=== PATIENT | female | born 1950 | race Caucasian/White ===

== ENCOUNTER 2017-07-31 00:24 | Observation (INO) | payer MEDICARE, OTHER ==
[~2017-07-31] VITALS: Ht 157.5 cm; Wt 72.8 kg
[2017-07-31 01:46] LABS: INFLUENZA A NONE DETECTED (NONE DETECT); INFLUENZA B NONE DETECTED (NONE DETECT)
[2017-07-31 03:40] LABS: HEMATOCRIT 35.5 % (37.0-47.0); HEMOGLOBIN 11.5 g/dl (12.0-16.0); IMMATURE GRANULOCYTES 0.4 % (0.0-1.0); MEAN CELL VOLUME 89.6 fL CALC (80.0-100.0); MEAN CORPUSCULAR HGB CONC 32.4 g/L CALC (32.0-36.0); NEUT# 2.78 thou/uL (2.00-7.15); RED BLOOD COUNT 3.96 mill/uL (4.20-5.60); RED CELL DISTRI WIDTH 12.3 % (11.5-15.5)
[2017-07-31 03:52] LABS: ALBUMIN 3.8 g/dL (3.2-5.0); ALKALINE PHOSPHATASE 82 u/l (38-126); AMYLASE 66 u/l (30-110); ANION GAP 14 (6-22 (CALC)); BILIRUBIN, TOTAL 0.5 mg/dL (0.0-1.4); BUN 16 mg/dL (8-23); BUN/CREATININE RATIO 20 (12-20 (CALC)); CALCIUM 9.5 mg/dL (8.4-10.2); CARBON DIOXIDE 27 mmol/l (22-30); CHLORIDE 104 mmol/l (95-108); CREATININE 0.8 mg/dL (0.5-1.0); GFR > 60 ML/MIN (>=60 (CALC)); GFR FOR AFR.AMER. > 60 ML/MIN (>=60 (CALC)); GLUCOSE 108 mg/dL (82-115); LIPASE 176 u/l (23-300); SGOT/AST 57 u/l (9-36); SGPT/ALT 33 u/l (11-66); SODIUM 141 mmol/l (137-146)
[2017-07-31 04:05] LABS: MYOGLOBIN 37 ng/mL (0 - 62)
[2017-07-31 06:00] VITALS: BP 113/62
[2017-07-31 07:40] VITALS: BP 107/60
[2017-07-31 10:15] LABS: URINE BILIRUBIN - DIPSTICK NEGATIVE (NEGATIVE); URINE BLOOD DIPSTICK NEGATIVE (NEGATIVE); URINE COLOR YELLOW; URINE GLUCOSE - DIPSTICK NEGATIVE (NEGATIVE); URINE KETONE NEGATIVE (NEGATIVE); URINE LEUK ESTERASE NEGATIVE (NEGATIVE); URINE NITRITE - DIPSTICK NEGATIVE (Negative); URINE PROTEIN - DIPSTICK NEGATIVE (NEG-TRACE); URINE UROBILINOGEN - DIPSTICK 0.2 E.U./dL (0.2)
[2017-07-31 10:27] LABS: URINE CLARITY CLEAR
[2017-07-31 12:00] VITALS: BP 105/60
[2017-07-31] MEDS ORDERED: ZPAK PO (13:41)
[2017-07-31] MEDS ORDERED: ROBITUSSIN AC10 ML PO (13:41)
[2017-07-31] MEDS ORDERED: MEDDOSEPAK PO (13:41)
[2017-07-31] MEDS ORDERED: FLONASE AL50 MCG/ACT NAB (13:42)
== END 2017-07-31 14:20 | disposition home or self-care (01) ==
LOC: ED 00:24 → ED-I 05:00 → ED 05:31 → MS2 05:32
PROVIDERS: Emergency Medicine; ADMIT Internal Medicine; ATTEND Internal Medicine
DX: R07.89 Other chest pain (principal); J20.9 Acute bronchitis, unspecified; I10 Essential (primary) hypertension; I42.9 Cardiomyopathy, unspecified; Z85.828 Personal history of other malignant neoplasm of skin

== ENCOUNTER 2018-07-10 06:37 | Day surgery (SDC) | payer MEDICARE, OTHER ==
[~2018-07-10 06:37] MED LIST: BONIVA3 MG/3 ML PO; CARVEDILOL6.25 MG PO; FLONASE AL50 MCG/ACT NAB; FUROSEMIDE20 MG PO; LEVOTHYROXIN75 MCG PO; LISINOPRIL5 MG PO; MEDDOSEPAK PO; ROBITUSSIN AC10 ML PO; ZPAK PO; ZYRTEC10 MG PO; [UNRECOGNIZED DRUG - OTHER]
[2018-07-10 12:53] VITALS: BP 121/66
== END 2018-07-10 09:08 | disposition home or self-care (01) ==
LOC: ENDO 06:37
PROVIDERS: ATTEND Surgery
PROC: 0DJD8ZZ Inspection of Lower Intestinal Tract, Via Natural or Artificial Opening Endoscopic (ICD-10-PCS; principal; 2018-07-10)
DX: R10.9 Unspecified abdominal pain (principal); K64.4 Residual hemorrhoidal skin tags; K64.8 Other hemorrhoids; D18.03 Hemangioma of intra-abdominal structures; I10 Essential (primary) hypertension; E03.9 Hypothyroidism, unspecified

== ENCOUNTER 2020-04-29 08:18 | Emergency (ER) | payer MEDICARE, OTHER ==
[~2020-04-29] VITALS: Ht 157.5 cm; Wt 78.0 kg
[2020-04-29] MEDS ORDERED: SPIRONOLACT50 MG PO (08:53)
[2020-04-29] MEDS ORDERED: ASPIRIN LOW81 M1 PO (08:54)
[2020-04-29] MEDS ORDERED: CYCLOBENZAPR5 MG PO (10:27)
[2020-04-29] MEDS ORDERED: OMEPRAZOLE DR40 MG PO (10:27)
[2020-04-29] MEDS ORDERED: MOTRIN400 MG/TAB PO (10:27)
[2020-04-29 11:36] VITALS: BP 133/69
== END 2020-04-29 11:35 | disposition home or self-care (01) ==
LOC: ED 08:18
DX: M54.5 Low back pain (principal); M48.56XA Collapsed vertebra, not elsewhere classified, lumbar region, initial encounter for fracture; I10 Essential (primary) hypertension; I42.9 Cardiomyopathy, unspecified

== ENCOUNTER 2022-04-20 17:57 | Emergency (ER) | payer MEDICARE, OTHER ==
[~2022-04-20] VITALS: Ht 157.5 cm; Wt 72.7 kg
[2022-04-20] VITALS (9 sets, daily range): BP systolic 111–146; BP diastolic 59–77
[~2022-04-20 17:57] MED LIST changes: +ASPIRIN LOW81 M1 PO; +CYCLOBENZAPR5 MG PO; +MOTRIN400 MG/TAB PO; +OMEPRAZOLE DR40 MG PO; +SPIRONOLACT50 MG PO
[2022-04-20 18:26] LABS: HEMATOCRIT 40.3 % (37.0-47.0); HEMOGLOBIN 12.9 g/dl (12.0-16.0); IMMATURE GRANULOCYTES 0.2 % (0.0-5.0); MEAN CELL VOLUME 96.4 fL CALC (80.0-100.0); MEAN CORPUSCULAR HGB 30.9 pG CALC (26.0-32.0); NEUT# 13.99 thou/uL (2.00-7.15); RED BLOOD COUNT 4.18 mill/uL (4.20-5.60); RED CELL DISTRI WIDTH 12.4 % (11.5-15.5)
[2022-04-20] MEDS ORDERED: TRAMADOL HCL50 MG PO (18:32)
[2022-04-20] MEDS ORDERED: DULOXETINE HYDR30 MG (18:34)
[2022-04-20] MEDS ORDERED: VITA D-1000 PO (18:35)
[2022-04-20] MEDS ORDERED: CALCI17 PO (18:35)
[2022-04-20 18:43] LABS: ALBUMIN 4.1 g/dL (3.2-5.0); ALKALINE PHOSPHATASE 50 u/l (38-126); ANION GAP 12 (6-22 (CALC)); BILIRUBIN, TOTAL 0.4 mg/dL (0.0-1.4); BUN 18 mg/dL (8-23); BUN/CREATININE RATIO 20 (12-20 (CALC)); CARBON DIOXIDE 27 mmol/l (22-30); CHLORIDE 98 mmol/l (95-108); CREATININE 0.9 mg/dL (0.5-1.0); GFR FOR AFR.AMER. > 60 ML/MIN (>=60 (CALC)); GFR OTHER RACES > 60 ML/MIN (>=60 (CALC)); LIPASE 96 u/l (23-300); POTASSIUM 3.9 mmol/l (3.5-5.1); SGOT/AST 24 u/l (9-36); SODIUM 132 mmol/l (137-146); TOTAL PROTEIN 6.7 g/dL (6.3-8.2)
[2022-04-20 19:33] LABS: URINE BILIRUBIN - DIPSTICK NEGATIVE (NEGATIVE); URINE BLOOD DIPSTICK NEGATIVE (NEGATIVE); URINE COLOR YELLOW; URINE GLUCOSE - DIPSTICK NEGATIVE (NEGATIVE); URINE KETONE NEGATIVE (NEGATIVE); URINE LEUK ESTERASE NEGATIVE (NEGATIVE); URINE NITRITE - DIPSTICK NEGATIVE (Negative); URINE PH 6.5 (4.5-8.0); URINE PROTEIN - DIPSTICK NEGATIVE (NEG-TRACE); URINE SPECIFIC GRAVITY 1.025; URINE UROBILINOGEN - DIPSTICK 0.2 E.U./dL (0.2)
[2022-04-20] MEDS ORDERED: MIRALAX17 GM/SCOO PO (20:16)
[2022-04-20] MEDS ORDERED: DOCUSATE CAL240 MG PO (20:16)
[2022-04-20] MEDS ORDERED: GLYCERIN ADULT2 GM PR (20:16)
[2022-04-20] MEDS ORDERED: DICYCLOMINE10 MG PO (20:16)
== END 2022-04-20 20:50 | disposition home or self-care (01) ==
LOC: ED 17:57
PROVIDERS: Nurse Practitioner
DX: K59.00 Constipation, unspecified (principal); K64.9 Unspecified hemorrhoids; I10 Essential (primary) hypertension; I42.9 Cardiomyopathy, unspecified; Z98.890 Other specified postprocedural states
CPT/HCPCS: Q9967